=== PATIENT | female | born 1945 | race Two or more races ===

== ENCOUNTER 2021-12-01 14:24 | Inpatient (IN) | payer OTHER, MEDICAID ==
[~2021-12-01] VITALS: Ht 177.8 cm; Wt 97.3 kg
[2021-12-01] MEDS ORDERED: SUCCINYLCHOLINE CHLORIDE 20 MG/ML 10ML VIAL IV ONE (14:30)
[2021-12-01] MEDS ORDERED: ETOMIDATE (2MG/ML) 20ML VIAL IV ONE (14:30)
[2021-12-01] MEDS ORDERED: ALBUTEROL SULF 2.5 MG/0.5ML(0.5%) NEB SOLN ONE (14:34)
[2021-12-01] MEDS ORDERED: IPRATROPIUM BROM 0.5 MG/2.5ML INH SOL ONE (14:35)
[2021-12-01] MEDS ORDERED: LORazepam 2MG/ML-1ML VIAL ONE (14:36)
[2021-12-01] MEDS ORDERED: cefTRIAXone 1GM/50ML D5W 50 ML IV ONE (14:45)
[2021-12-01] MEDS ORDERED: methylPREDNISolone SOD SUCC 125 MG/2 ML VL IV ONE (14:45)
[2021-12-01] MEDS ORDERED: IPRATROPIUM BROM 0.5 MG/2.5ML INH SOL NEB ONE (14:45)
[2021-12-01] MEDS ORDERED: ALBUTEROL SULF 2.5 MG/0.5ML(0.5%) NEB SOLN NEB ONE (14:45)
[2021-12-01] MEDS ORDERED: LORazepam 2MG/ML-1ML VIAL IV ONE (15:00)
[2021-12-01 15:19] LABS: Basophils # (auto) 0 10 ^3/uL (0-0.2); Basophils % (auto) 0.8 % (0.0-2.0); Eosinophils # (auto) 0 10 ^3/uL (0-0.8); Eosinophils % (auto) 0.1 % (0.0-7.0); Hematocrit 27.1 % (36.0-46.0); Hemoglobin 8.8 g/dL (12.2-16.2); Lymphocytes # (auto) 0.5 10 ^3/uL (0.4-5.4); Lymphocytes % (auto) 9.3 % (10.0-50.0); Mean Corpuscular Hemoglobin 30.3 pg (28.0-32.0); Mean Corpuscular Hgb Conc. 32.4 g/dL (32.0-36.0); Mean Corpuscular Volume 93.6 fL (80.0-100.0); Monocytes # (auto) 0.3 10 ^3/uL (0-1.3); Monocytes % (auto) 6.7 % (0.0-12.0); Neutrophils # (auto) 4.1 10 ^3/uL (1.6-8.6); Neutrophils % (auto) 83.1 % (37.0-80.0); Nucleated Red Blood Cells % 0.2 %; Red Cell Distribution Width 18.9 % (11.8-14.3); White Blood Cell 4.9 10^3/uL (4.4-10.8)
[2021-12-01 15:29] LABS: INR 0.96 (0.9-1.15); Partial Thromboplastin Time 22.6 sec (23.6-33.0)
[2021-12-01 15:31] LABS: Albumin 3.1 g/dL (3.4-5.0); BUN/Creatinine Ratio 17.1; Calcium 9.1 mg/dL (8.5-10.1); Potassium 4.4 mmol/L (3.5-5.1)
[2021-12-01 15:33] LABS: Bilirubin, Total 0.3 mg/dL (0.2-1.0); Total Protein 6.7 g/dL (6.4-8.2)
[2021-12-01] MEDS ORDERED: SODIUM CHLORIDE 0.9% 500 ML IV ONE (15:45)
[2021-12-01] MEDS ORDERED: NOREPINEPHRINE 8 MG/250ML KIT 250 ML IV SCH (16:30)
[2021-12-01] MEDS ORDERED: NOREPINEPHRINE 8 MG/250ML KIT 250 ML IV ONE (16:34)
[2021-12-01] MEDS ORDERED: FUROSEMIDE 40 MG/4 ML VIAL IV ONE (18:15)
[2021-12-01] MEDS ORDERED: AZITHROMYCIN 500MG/ 250ML 250 ML IV ONE (18:15)
[2021-12-01] MEDS ORDERED: ALBUTEROL SULF 2.5 MG/0.5ML(0.5%) NEB SOLN NEB PRN (18:15)
[2021-12-01] MEDS ORDERED: NITROGLYCERIN 0.4 MG SL TAB SL PRN (18:15)
[2021-12-01] MEDS ORDERED: MORPHINE SULFATE INJ 2 MG/ml SYRG IV PRN (18:15)
[2021-12-01 18:26] VITALS: BP 113/59
[2021-12-01] MEDS ORDERED: DEXTROSE (50%) 50ML SYRG IV PRN (18:30)
[2021-12-01 20:11] VITALS: BP 132/54
[2021-12-01 21:27] LABS: Urine Bacteria NONE SEEN /hpf (None Seen); Urine Blood Negative /uL (Negative); Urine Hyaline Cast MOD /lpf (0 - 2); Urine Mucus FEW (None Seen); Urine Specific Gravity 1.013 (1.001-1.035); Urine WBC 2 /hpf (0 - 5)
[2021-12-01 22:08] VITALS: BP 121/56
[2021-12-02] MEDS ORDERED: LORazepam 2MG/ML-1ML VIAL IV ONE
[2021-12-02] MEDS: ACCU-CHEK COMFORT CURVE STRIP VI SCH ×5 (00:45→23:18)
[2021-12-02] MEDS: InsuLIN REG 1unit/0.01ml Soln (100units/ml) SC SCH ×5 (00:48→23:18)
[2021-12-02 02:44] VITALS: BP 134/58
[2021-12-02 03:41] LABS: Basophils # (auto) 0 10 ^3/uL (0-0.2); Eosinophils # (auto) 0 10 ^3/uL (0-0.8); Eosinophils % (auto) 0.1 % (0.0-7.0); Hemoglobin 8.2 g/dL (12.2-16.2); Lymphocytes # (auto) 0.1 10 ^3/uL (0.4-5.4); Monocytes # (auto) 0.1 10 ^3/uL (0-1.3); Red Blood Cells 2.74 10^6/uL (4.0-5.20)
[2021-12-02 03:42] LABS: Basophils % (auto) 0.5 % (0.0-2.0); Hematocrit 26.4 % (36.0-46.0); Lymphocytes % (auto) 4.3 % (10.0-50.0); Mean Corpuscular Hemoglobin 29.9 pg (28.0-32.0); Mean Corpuscular Hgb Conc. 31.1 g/dL (32.0-36.0); Mean Corpuscular Volume 96.2 fL (80.0-100.0); Monocytes % (auto) 2.1 % (0.0-12.0); Neutrophils # (auto) 2.9 10 ^3/uL (1.6-8.6); Nucleated Red Blood Cells % 0.2 %; Red Cell Distribution Width 18.5 % (11.8-14.3); White Blood Cell 3.2 10^3/uL (4.4-10.8)
[2021-12-02 04:25] LABS: Albumin 2.8 g/dL (3.4-5.0); Anion Gap 9 (5-15); Blood Urea Nitrogen 39 mg/dL (7-18); Carbon Dioxide 28 mmol/L (21-32); Chloride 107 mmol/L (98-107); Glucose 180 mg/dL (74-106); Sodium 144 mmol/L (136-145)
[2021-12-02 04:29] LABS: Alanine Aminotransferase 22 U/L (13-56); Alkaline Phosphatase 67 U/L (45-117); Aspartate Aminotransferase 26 U/L (15-37); BUN/Creatinine Ratio 21.2; Bilirubin, Total 0.2 mg/dL (0.2-1.0); Cholesterol 149 mg/dL (< 200); GFR African American 34 mL/min; GFR Non-African American 28 mL/min; HDL Cholesterol 90 mg/dL (40-59); LDL Cholesterol 58 mg/dL (< 100); Total Protein 6.8 g/dL (6.4-8.2); Triglycerides 94 mg/dL (< 150)
[2021-12-02] MEDS ORDERED: MORPHINE SULFATE 4 MG/ML SYR/VIAL ONE (05:13)
[2021-12-02] MEDS: FUROSEMIDE 40 MG/4 ML VIAL IV SCH (10:35)
[2021-12-02] MEDS: ALBUTEROL SULF 2.5 MG/0.5ML(0.5%) NEB SOLN NEB SCH ×4 (10:35→22:08)
[2021-12-02] MEDS: IPRATROPIUM BROM 0.5 MG/2.5ML INH SOL NEB SCH ×4 (10:35→22:08)
[2021-12-02] MEDS: cefTRIAXone 1GM/50ML D5W 50 ML IV SCH (10:36)
[2021-12-02] MEDS: ENOXAPARIN SOD 40 MG/0.4 ML SYRINGE SC SCH (10:37)
[2021-12-02] MEDS: AZITHROMYCIN 500MG/ 250ML 250 ML IV SCH (11:50)
[2021-12-02] MEDS ORDERED: PANTOPRAZOLE 40 MG/10 ML VIAL INJ IV ONE (12:00)
[2021-12-02] MEDS ORDERED: [UNRECOGNIZED DRUG - CODE] PO (17:01)
[2021-12-02] MEDS ORDERED: SIMV-8 PO (17:01)
[2021-12-02] MEDS ORDERED: GABA300C10 PO (17:01)
[2021-12-02] MEDS ORDERED: LOSA-39 PO (17:01)
[2021-12-02] MEDS ORDERED: LEVO50TA7 PO (17:01)
[2021-12-02] MEDS ORDERED: PRED10TA PO (17:01)
[2021-12-02] MEDS ORDERED: BACL20TA PO (17:01)
[2021-12-02] MEDS ORDERED: AZIT250T9 PO (17:01)
[2021-12-02] MEDS ORDERED: FUR20T PO (17:01)
[2021-12-02] MEDS ORDERED: OMEP-411 PO (17:01)
[2021-12-02] MEDS ORDERED: METF-869 PO (17:01)
[2021-12-02 22:00] VITALS: BP 160/74
[2021-12-02] MEDS: HYDROcodone-ACET 5/325MG TAB PO PRN (23:18)
[2021-12-03] MEDS: HYDROcodone-ACET 5/325MG TAB PO PRN ×2 (03:24→10:14)
[2021-12-03 05:00] VITALS: BP 159/85
[2021-12-03 05:47] LABS: Basophils # (auto) 0.1 10 ^3/uL (0-0.2); Basophils % (auto) 0.9 % (0.0-2.0); Eosinophils # (auto) 0 10 ^3/uL (0-0.8); Eosinophils % (auto) 0.3 % (0.0-7.0); Hematocrit 27.2 % (36.0-46.0); Lymphocytes # (auto) 0.4 10 ^3/uL (0.4-5.4); Lymphocytes % (auto) 7.1 % (10.0-50.0); Mean Corpuscular Hemoglobin 30.6 pg (28.0-32.0); Mean Corpuscular Volume 92.8 fL (80.0-100.0); Monocytes # (auto) 0.4 10 ^3/uL (0-1.3); Monocytes % (auto) 8.4 % (0.0-12.0); Neutrophils # (auto) 4.4 10 ^3/uL (1.6-8.6); Neutrophils % (auto) 83.3 % (37.0-80.0); Nucleated Red Blood Cells % 0.1 %; Red Blood Cells 2.93 10^6/uL (4.0-5.20); Red Cell Distribution Width 17.9 % (11.8-14.3); White Blood Cell 5.3 10^3/uL (4.4-10.8)
[2021-12-03 06:07] LABS: BUN/Creatinine Ratio 29.1; Calcium 9.7 mg/dL (8.5-10.1); Potassium 3.6 mmol/L (3.5-5.1)
[2021-12-03] MEDS ORDERED: LORazepam 0.5 MG TAB PO ONE (06:30)
[2021-12-03] MEDS: ACCU-CHEK COMFORT CURVE STRIP VI SCH ×3 (06:40→17:47)
[2021-12-03] MEDS: InsuLIN REG 1unit/0.01ml Soln (100units/ml) SC SCH ×3 (06:41→17:48)
[2021-12-03] MEDS: ALBUTEROL SULF 2.5 MG/0.5ML(0.5%) NEB SOLN NEB SCH ×5 (06:50→23:00)
[2021-12-03] MEDS: IPRATROPIUM BROM 0.5 MG/2.5ML INH SOL NEB SCH ×5 (06:50→23:00)
[2021-12-03 08:52] VITALS: BP 133/74
[2021-12-03] MEDS: cefTRIAXone 1GM/50ML D5W 50 ML IV SCH (10:12)
[2021-12-03] MEDS: FUROSEMIDE 40 MG/4 ML VIAL IV SCH (10:12)
[2021-12-03] MEDS: PANTOPRAZOLE 40 MG/10 ML VIAL INJ IV SCH (10:13)
[2021-12-03] MEDS: ENOXAPARIN SOD 40 MG/0.4 ML SYRINGE SC SCH (10:13)
[2021-12-03] MEDS: BUDESONIDE (INHALATION) 0.5 MG/2 ML NEB NEB SCH ×2 (10:14→23:00)
[2021-12-03] MEDS ORDERED: LEVOTHYROXINE SODIUM 50 MCG TAB PO ONE (11:30)
[2021-12-03] MEDS: AZITHROMYCIN 500MG/ 250ML 250 ML IV SCH (11:47)
[2021-12-03 13:00] VITALS: BP 141/72
[2021-12-03 16:38] VITALS: BP 153/74
[2021-12-03] MEDS: HYDROcodone-ACET 10/325MG TAB PO PRN (17:32)
[2021-12-03] MEDS ORDERED: FURO20TA3 PO (19:39)
[2021-12-03] MEDS ORDERED: OMEP-434 PO (19:39)
[2021-12-03] MEDS ORDERED: SIMV-8 PO (19:39)
[2021-12-03] MEDS ORDERED: GABA300C10 PO (19:39)
[2021-12-03] MEDS ORDERED: PARO1TAB33 PO (19:39)
[2021-12-03] MEDS ORDERED: ASPI1TAB20 PO (19:39)
[2021-12-03] MEDS ORDERED: HYDR-4798 PO (19:39)
[2021-12-03] MEDS: TEMAZEPAM 15 MG CAP PO PRN (20:42)
[2021-12-03 22:00] VITALS: BP 144/63
[2021-12-04] MEDS: ACCU-CHEK COMFORT CURVE STRIP VI SCH ×4 (00:08→18:30)
[2021-12-04] MEDS: HYDROcodone-ACET 10/325MG TAB PO PRN ×4 (00:16→19:14)
[2021-12-04 05:00] VITALS: BP 166/84
[2021-12-04] MEDS: LEVOTHYROXINE SODIUM 50 MCG TAB PO SCH (06:32)
[2021-12-04] MEDS: BUDESONIDE (INHALATION) 0.5 MG/2 ML NEB NEB SCH ×2 (06:33→19:26)
[2021-12-04] MEDS: ALBUTEROL SULF 2.5 MG/0.5ML(0.5%) NEB SOLN NEB SCH ×5 (06:33→22:39)
[2021-12-04] MEDS: IPRATROPIUM BROM 0.5 MG/2.5ML INH SOL NEB SCH ×5 (06:33→22:39)
[2021-12-04 06:37] LABS: Chloride 101 mmol/L (98-107); Potassium 3.4 mmol/L (3.5-5.1); Sodium 144 mmol/L (136-145)
[2021-12-04 06:48] LABS: Anion Gap 8 (5-15); BUN/Creatinine Ratio 22.2; Blood Urea Nitrogen 22 mg/dL (7-18); Calcium 9.6 mg/dL (8.5-10.1); Carbon Dioxide 35 mmol/L (21-32); GFR African American 70 mL/min; GFR Non-African American 58 mL/min; Glucose 153 mg/dL (74-106)
[2021-12-04] MEDS: InsuLIN REG 1unit/0.01ml Soln (100units/ml) SC SCH ×4 (06:55→18:23)
[2021-12-04 09:00] VITALS: BP 119/67
[2021-12-04] MEDS: cefTRIAXone 1GM/50ML D5W 50 ML IV SCH (09:30)
[2021-12-04] MEDS: FUROSEMIDE 40 MG/4 ML VIAL IV SCH (09:30)
[2021-12-04] MEDS: AZITHROMYCIN 500MG/ 250ML 250 ML IV SCH (09:31)
[2021-12-04] MEDS: PARoxetine 20 MG TAB PO SCH (09:32)
[2021-12-04] MEDS: PANTOPRAZOLE 40 MG/10 ML VIAL INJ IV SCH (09:32)
[2021-12-04] MEDS: ENOXAPARIN SOD 40 MG/0.4 ML SYRINGE SC SCH (09:33)
[2021-12-04] MEDS ORDERED: POTASSIUM CHL 20 Meq TABLET PO ONE (12:00)
[2021-12-04] MEDS ORDERED: BACLOFEN 10 MG TAB PO ONE (12:00)
[2021-12-04] MEDS ORDERED: methylPREDNISolone SOD SUCC 40 MG/ML VL IV ONE (12:00)
[2021-12-04 13:00] VITALS: BP 119/80
[2021-12-04 16:30] VITALS: BP 152/82
[2021-12-04] MEDS: BACLOFEN 10 MG TAB PO SCH (21:21)
[2021-12-04] MEDS: methylPREDNISolone SOD SUCC 40 MG/ML VL IV SCH (21:21)
[2021-12-04] MEDS: TEMAZEPAM 15 MG CAP PO PRN (21:22)
[2021-12-04 22:00] VITALS: BP 146/76
[2021-12-04 22:50] VITALS: BP 152/82
[2021-12-05] MEDS: ACCU-CHEK COMFORT CURVE STRIP VI SCH ×3 (00:57→12:16)
[2021-12-05] MEDS: InsuLIN REG 1unit/0.01ml Soln (100units/ml) SC SCH ×3 (00:58→12:47)
[2021-12-05] MEDS: HYDROcodone-ACET 10/325MG TAB PO PRN ×2 (02:01→14:30)
[2021-12-05] MEDS ORDERED: TEMAZEPAM 15 MG CAP PO ONE (02:30)
[2021-12-05 04:53] LABS: Potassium 3.7 mmol/L (3.5-5.1)
[2021-12-05 04:59] LABS: BUN/Creatinine Ratio 24.2; Calcium 10.2 mg/dL (8.5-10.1)
[2021-12-05 05:00] VITALS: BP 146/84
[2021-12-05] MEDS: BACLOFEN 10 MG TAB PO SCH ×2 (06:03→09:02)
[2021-12-05] MEDS: LEVOTHYROXINE SODIUM 50 MCG TAB PO SCH (06:03)
[2021-12-05] MEDS: ALBUTEROL SULF 2.5 MG/0.5ML(0.5%) NEB SOLN NEB SCH ×4 (06:43→18:19)
[2021-12-05] MEDS: BUDESONIDE (INHALATION) 0.5 MG/2 ML NEB NEB SCH (06:43)
[2021-12-05] MEDS: IPRATROPIUM BROM 0.5 MG/2.5ML INH SOL NEB SCH ×4 (06:43→18:19)
[2021-12-05 09:00] VITALS: BP 146/80
[2021-12-05] MEDS: methylPREDNISolone SOD SUCC 40 MG/ML VL IV SCH (09:00)
[2021-12-05] MEDS: cefTRIAXone 1GM/50ML D5W 50 ML IV SCH (09:00)
[2021-12-05] MEDS: PARoxetine 20 MG TAB PO SCH (09:02)
[2021-12-05] MEDS: ENOXAPARIN SOD 40 MG/0.4 ML SYRINGE SC SCH (09:24)
[2021-12-05] MEDS ORDERED: AZITHROMYCIN 250 MG TAB PO SCH (10:00)
[2021-12-05] MEDS ORDERED: POTASSIUM CHL 20 Meq TABLET PO SCH (10:00)
[2021-12-05] MEDS ORDERED: FUROSEMIDE 40 MG TAB PO SCH (10:00)
[2021-12-05 11:28] VITALS: BP 146/80
[2021-12-05 17:00] VITALS: BP 140/80
== END 2021-12-05 18:36 | disposition hospice, home (50) | DRG 193 ==
LOC: ER 14:24 → EDBD 14:24 → ICU WEST 18:15 → OVERFLOW 12-02 00:05 → TELE-EAST 12-02 15:23
PROVIDERS: ADMIT Registered Nurse; ATTEND Internal Medicine
PROC: 5A09357 Assistance with Respiratory Ventilation, Less than 24 Consecutive Hours, Continuous Positive Airway Pressure (ICD-10-PCS; principal; 2021-12-01)
DX: J18.9 Pneumonia, unspecified organism (principal); J96.22 Acute and chronic respiratory failure with hypercapnia; G93.41 Metabolic encephalopathy; N17.0 Acute kidney failure with tubular necrosis; I50.43 Acute on chronic combined systolic (congestive) and diastolic (congestive) heart failure; E87.2 Acidosis; J44.0 Chronic obstructive pulmonary disease with (acute) lower respiratory infection; J44.1 Chronic obstructive pulmonary disease with (acute) exacerbation; J98.11 Atelectasis; I13.0 Hypertensive heart and chronic kidney disease with heart failure and stage 1 through stage 4 chronic kidney disease, or unspecified chronic kidney disease; Z66 Do not resuscitate; Z20.822 Contact with and (suspected) exposure to COVID-19; D64.9 Anemia, unspecified; E66.01 Morbid (severe) obesity due to excess calories; G25.0 Essential tremor; G25.3 Myoclonus; N18.9 Chronic kidney disease, unspecified; E11.40 Type 2 diabetes mellitus with diabetic neuropathy, unspecified; E03.9 Hypothyroidism, unspecified; E11.9 Type 2 diabetes mellitus without complications; M19.90 Unspecified osteoarthritis, unspecified site; E11.21 Type 2 diabetes mellitus with diabetic nephropathy; Z17.0 Estrogen receptor positive status [ER+]; Z51.5 Encounter for palliative care; Z68.30 Body mass index [BMI] 30.0-30.9, adult; Z90.11 Acquired absence of right breast and nipple; Z87.891 Personal history of nicotine dependence; Z79.84 Long term (current) use of oral hypoglycemic drugs
CPT/HCPCS: 36415; 36600; 70450; 71045; 74176; 80048; 80053; 80061; 81001; 82805; 82962; 83036; 83880; 84443; 84484; 85025; 85379; 85610; 85730; 87040; 87086; 93005; 93306; 93970; 94640; 94644; 94660; 95819; 96361; 96365; 96366; 96368; 96375; 97163; 99291; C9113; G0378; J0330; J0696; J1815